=== PATIENT | female | born 1975 | race Caucasian/White ===

== ENCOUNTER 2016-12-08 11:09 | Inpatient (IN) | payer OTHER ==
[~2016-12-08] VITALS: Ht 152.4 cm; Wt 108.9 kg
--- NOTE | 2016-12-08 11:17 | NUR ---
Patient to ER bed 8 to gown for evaluation. Side rails up. Report given to Brandan MERCADO.
--- NOTE | 2016-12-08 11:18 | NUR ---
Pt presents to ED from PMD's after visit.Pt c/o fever,chills and fluid retention.Pt has anxiety noted,headache.Pt reports h/o htn.
[2016-12-08 11:20] VITALS: BP_SYST 170
--- NOTE | 2016-12-08 11:20 | NUR ---
ER Dr. Nagel at bedside examining patient.
[2016-12-08] MEDS ORDERED: NACL 0.9% 1,000 ML IV SCH (11:22)
--- NOTE | 2016-12-08 11:30 | NUR ---
# 20 gauge angiocath placed to RAC. Use of asceptic technique. Opsite placed over site. Blood return noted. Blood for lab drawn from site. Flushed with 10 cc of normal saline. No evidence of infiltration noted. Patient tolerated well.
[2016-12-08 11:47] LABS: BILIRUBIN,URINE NEGATIVE (NEGATIVE); BLOOD, URINE 3+ (NEGATIVE); CLARITY/URINE CLEAR (CLEAR); COLOR,URINE YELLOW (YELLOW); GLUCOSE,URINE NEGATIVE (NEGATIVE); KETONES,URINE NEGATIVE (NEGATIVE); LEUKOCYTE ESTERASE ,URINE TRACE (NEGATIVE); NITRITE, URINE POSITIVE (NEGATIVE); PROTEIN URINE 1+ (NEGATIVE); UROBILINOGEN,URINE 0.2 (0.2-1.0)
[2016-12-08 11:48] LABS: BASOPHILS % (AUTO) 0.2 % (0.0-2.0); EOSINOPHILS % (AUTO) 0.1 % (0.0-4.0); HEMATOCRIT 39.9 % (36-48); HEMOGLOBIN 13.5 g/dL (12.0-16.0); LYMPHOCYTES % (AUTO) 5.8 % (20.5-51.5); MEAN CORPUSCULAR HEMOGLOBIN 30 pg (27-31); MEAN CORPUSCULAR HGB CONC 34 % (32-36); MEAN CORPUSCULAR VOLUME 88 fL (79.0-98.0); MONOCYTES # (AUTO) 0.8 K/uL (0.0-1.0); MONOCYTES % (AUTO) 4.7 % (1.7-9.3); NEUTROPHILS % (AUTO) 89.2 % (40.0-70.0); PLATELET COUNT (AUTO) 217 K/uL (130-430); RED BLOOD CELL COUNT(AUTO) 4.53 MIL/uL (4.2-6.2); RED CELL DISTRIBUTION WIDTH 12.6 % (9.0-15.0); WHITE BLOOD COUNT (AUTO) 16.8 K/uL (4.8-10.8)
[2016-12-08 11:57] LABS: BACTERIA,URINE FEW /HPF (None Seen); RBC,URINE 20-50 /HPF (0-3)
[2016-12-08 12:08] LABS: CALCIUM 8.6 mg/dL (8.4-11.0); CREATININE 0.9 mg/dL (0.55-1.30); POTASSIUM 3.5 mmol/L (3.5-5.1)
--- NOTE | 2016-12-08 12:12 | NUR ---
Fever and headache resolving.BP 148/84
[2016-12-08 12:13] LABS: ALBUMIN 3.3 g/dL (3.4-4.8); TOTAL BILIRUBIN 0.4 mg/dL (0.0-1.0); TOTAL PROTEIN, SERUM 8.3 g/dL (6.4-8.3)
[2016-12-08] MEDS ORDERED: LEVOFLOXACIN 500 MG TABLET PO ONE (12:30)
[2016-12-08] MEDS ORDERED: LISI10TA5 PO (12:38)
--- NOTE | 2016-12-08 13:10 | NUR ---
ADMISSION NOTE Received patient from ER via julian, received report from Kirill MERCADO. Patient admitted with diagnosis of . Patient oriented to hospital routine, call light, toileting and safety-patient verbalized understanding.
[2016-12-08 13:26] VITALS: BP_SYST 120
[2016-12-08] MEDS ORDERED: ACETAMINOPHEN 325 MG TABLET ONE (14:55)
--- NOTE | 2016-12-08 14:57 | NUR ---
Fever: Patient is chilling, Tbti=876.0, UM=051, Sat B8=207%. Call Dr. Mccarthy and he has ordered for Tylenol 650 mg PO Q 6 hr PRN for fever. Will continue monitor V/S, and symptom.
[2016-12-08] MEDS ORDERED: ONDANSETRON HCL 4 MG/2 ML VIAL IVP PRN (15:00)
[2016-12-08] MEDS ORDERED: ACETAMINOPHEN 325 MG TABLET PO PRN (15:00)
[2016-12-08] MEDS ORDERED: MORPHINE 2 MG/ML INJ. SYRINGE IVP PRN (15:00)
[2016-12-08] MEDS ORDERED: MORPHINE 4 MG/ML INJ. SYRINGE IVP PRN (15:00)
[2016-12-08] MEDS ORDERED: ACETAMINOPHEN 650 MG/20.3 ML UDC PO ONE (15:00)
[2016-12-08] MEDS: NACL 0.9% 1,000 ML IV SCH (16:24)
[2016-12-08] MEDS: PIPERACILLIN/TAZO 3.375/DEX-IS 50 ML IV SCH ×3 (16:25→23:50)
--- NOTE | 2016-12-08 16:30 | NUR ---
IVF: Start IVF< Normal Saline> @ 100 ml/hr, and start a first dose of Antibiotic as ordered.
[2016-12-08 16:48] VITALS: BP_SYST 118
--- NOTE | 2016-12-08 19:05 | NUR ---
CLOSING NOTE: PATIENT IS STABLE, NO SIGN OF DISTRESS, TOLERATES DIET WELL. AMBULATING WELL.
[2016-12-08 20:00] VITALS: BP_SYST 121
--- NOTE | 2016-12-08 20:03 | NUR ---
Rounds Received patient lying in bed resting, denies of any pain, no acute distress noted. IV site checked intact and patent, IV fluid infusing well. Encouraged patient to use call light.
[2016-12-08] MEDS: ACETAMINOPHEN 325 MG TABLET PO PRN (21:10)
--- NOTE | 2016-12-08 22:13 | NUR ---
PAGED: I PAGED PHY. MONDRAGON @ [phone] ENVIRONMENTAL CONSERVATION PROFESSOR AZRA I SPOKE WITH ANITRAMARYANN OQUENDO CALLED BACK @ [phone] NUMBER I CALLED [phone]
--- NOTE | 2016-12-08 22:23 | NUR ---
C/o heartburn Patient c/o heartburn, informed Dr Mccarthy, order received to give Prilosec 20mg p.o daily.
[2016-12-08] MEDS ORDERED: OMEPRAZOLE 20 MG CAPSULE.DR (PriLOSEC) PO ONE (22:30)
[2016-12-08] MEDS: OMEPRAZOLE 20 MG CAPSULE.DR (PriLOSEC) PO SCH (22:42)
[2016-12-09] VITALS: BP_SYST 110
--- NOTE | 2016-12-09 00:42 | NUR ---
Rounds Patient resting and watching tv at this time. Prilosec given earlier with effective result noted. Temp 99.1. call light within reach.
--- NOTE | 2016-12-09 02:46 | NUR ---
Rounds Patient resting quietly, no s/s of any pain, no acute distress noted. call light within reach.
[2016-12-09] MEDS: NACL 0.9% 1,000 ML IV SCH ×2 (04:39→11:27)
[2016-12-09 04:45] VITALS: BP_SYST 124
[2016-12-09] MEDS: ACETAMINOPHEN 325 MG TABLET PO PRN (04:57)
--- NOTE | 2016-12-09 04:59 | NUR ---
C/O headache and Temp 101.0 Patient c/o headache and Temp 101.0, Tylenol 650mg p.o given and cooling measure provided. Coffee and x2 cracker given to patient per patient request. will monitor. call light within reach.
[2016-12-09] MEDS: PIPERACILLIN/TAZO 3.375/DEX-IS 50 ML IV SCH ×3 (05:49→17:49)
--- NOTE | 2016-12-09 06:25 | NUR ---
Closing notes Patient sitting on a chair resting and watching tv. Pain medication given earlier with effective result noted. Temp 99.0. call light within reach.
--- NOTE | 2016-12-09 07:36 | NUR ---
AM Rounds: Received pt sitting up in chair. Denies pain. IV intact to RUE with no redness or swelling noted to site. Call light in reach. Continue to monitor.
[2016-12-09 08:05] VITALS: BP_SYST 112
[2016-12-09] MEDS: OMEPRAZOLE 20 MG CAPSULE.DR (PriLOSEC) PO SCH (08:58)
--- NOTE | 2016-12-09 09:11 | NUR ---
RN Rounds: AM meds given per MD order. Pt tolerates well at this time. IV intact and infusing well to RUE with no redness or swelling noted to site. Pt denies pain. Call light in reach. Continue to monitor.
--- NOTE | 2016-12-09 11:34 | NUR ---
Rounds: Pt sitting up in chair. No acute signs of distress noted at this time. IV intact to RUE infusing IV fluids well at this time. Pt remains afebrile. Call light in reach. Pt denies pain. Continue to monitor.
--- NOTE | 2016-12-09 11:53 | NUR ---
reason for consult: sepsis was consult called: verbally spoke with dr in person person who was called: verbally spoke with dr in person consulting doctor: Dr. Cabral
[2016-12-09 12:44] VITALS: BP_SYST 129
--- NOTE | 2016-12-09 13:27 | NUR ---
Rounds: Pt sitting semi-fowlers in bed. No acute signs of distress noted. Pt c/o feeling hot, she remains afebrile at 97.0 F. Cooling measures implemented. Call light in reach. No other needs noted at this time. Continue to monitor.
--- NOTE | 2016-12-09 15:40 | NUR ---
Rounds: Pt sitting up in chair. Pt denies pain. No acute signs of distress noted. IV intact to RUE and infusing fluids well. Call light in reach. Continue to monitor pt closely.
--- NOTE | 2016-12-09 15:40 | NUR ---
Rounds: Pt sitting semi-fowlers in bed. No acute signs of distress noted at this time. IV intact to RUE with no redness or swelling noted to site. GT clamped to abdomen. Call light in reach. Aspiration and contact precautions in place. Continue to monitor. Addendum: 12/09/16 at 1615 by Toshia Hinson RN Wrong patient--please disregard this note
[2016-12-09 17:05] VITALS: BP_SYST 126
--- NOTE | 2016-12-09 17:25 | NUR ---
Rounds: Pt sitting semi-fowlers in bed. No acute signs of distress noted. Pt eating dinner at this time. Call light in reach. Continue to monitor.
--- NOTE | 2016-12-09 19:05 | NUR ---
Closing Note: Pt sitting up in bed and watching TV. No acute signs of distress noted. Call light in reach. Endorse plan of care to NOC RN.
[2016-12-09 20:00] VITALS: BP_SYST 122
[2016-12-09] MEDS: LACTOBACILLUS RHAMNOSUS GG 1 CAP CAPSULE PO SCH (20:27)
[2016-12-10] VITALS: BP_SYST 125
--- NOTE | 2016-12-10 | NUR ---
PATIENT RESTING: Patient resting quietly. No acute distress noted. Vital signs within normal range.
[2016-12-10] MEDS: NACL 0.9% 1,000 ML IV SCH ×3 (01:48→11:23)
[2016-12-10] MEDS: PIPERACILLIN/TAZO 3.375/DEX-IS 50 ML IV SCH ×2 (01:48→05:22)
--- NOTE | 2016-12-10 02:15 | NUR ---
ROUNDS PATIENT ASLEEP, VITALS STABLE, WILL CONTINUE TO MONITOR.
[2016-12-10 04:00] VITALS: BP_SYST 123
--- NOTE | 2016-12-10 04:00 | NUR ---
PATIENT RESTING: Patient resting quietly. No acute distress noted. Vital signs within normal range.
--- NOTE | 2016-12-10 06:50 | NUR ---
CLOSING NOTES PATIENT AWAKE, VITALS STABLE, ALL NEEDS ATTENDED TO. CALL LIGHT PLACED WITHIN REACH.
--- NOTE | 2016-12-10 07:23 | NUR ---
OPENING NOTE: RECEIVED REPORT FROM CREDIT ADMINISTRATION SPECIALIST NURSE. PATIENT RESTING COMFORTABLY, NO COMPLAINTS OF PAIN AT THIS TIME. PATIENT HAS NO NOTABLE SIGNS OF DISTRESS. PATIENTS BED IS IN LOWEST POSITION, CALL LIGHT WITHIN REACH, AND BED RAILS ARE UP. WILL CONTINUE TO MONITOR FOR CHANGES IN STATUS.
[2016-12-10 08:33] VITALS: BP_SYST 141
--- NOTE | 2016-12-10 10:00 | NUR ---
1000 ROUNDS PATIENT RESTING COMFORTABLY, NO COMPLAINTS OF PAIN AT THIS TIME. PATIENT HAS NO NOTABLE SIGNS OF DISTRESS AT THIS TIME. PATIENT BED IN LOWEST POSITION, SIDE RAILS UP, AND CALL LIGHT WITHIN REACH. WILL CONTINUE TO MONITOR FOR CHANGES IN STATUS.
[2016-12-10] MEDS: LACTOBACILLUS RHAMNOSUS GG 1 CAP CAPSULE PO SCH (10:01)
[2016-12-10] MEDS: OMEPRAZOLE 20 MG CAPSULE.DR (PriLOSEC) PO SCH (10:01)
[2016-12-10] MEDS ORDERED: LEVOFLOXACIN 250 MG TABLET PO ONE (12:00)
[2016-12-10 12:22] VITALS: BP_SYST 150
--- NOTE | 2016-12-10 12:35 | NUR ---
1200 ROUNDS PATIENT RESTING COMFORTABLY WITH FAMILY AT BEDSIDE, NO COMPLAINTS OF PAIN AT THIS TIME. PATIENT HAS NO NOTABLE SIGNS OF DISTRESS AT THIS TIME. PATIENT BED IN LOWEST POSITION, SIDE RAILS UP, AND CALL LIGHT WITHIN REACH. WILL CONTINUE TO MONITOR FOR CHANGES IN STATUS.
--- NOTE | 2016-12-10 13:44 | NUR ---
1400 ROUNDING PATIENT RESTING COMFORTABLY. PATIENT CURRENTLY NPO AWAITING AN EGD BY DR. MCGUIRE AT 1400. PATIENT BED IN LOWEST POSITION, CALL LIGHT WITHIN REACH, AND BED ALARM IS ON. WILL CONTINUE TO MONITOR FOR CHANGES IN STATUS. Addendum: 12/10/16 at 1429 by Kym Mcginnis RN WRONG PATIENT
[2016-12-10 14:22] VITALS: BP_SYST 139
--- NOTE | 2016-12-10 14:29 | NUR ---
DISCHARGE PENDING PATIENT AWAITING DISCHARGE HOME PER DR. OQUENDO.
--- NOTE | 2016-12-10 16:03 | NUR ---
DISCHARGE PATIENT GIVEN TRANSITIONAL CARE/DISCHARGE INSTRUCTIONS, REVIEWED AND EDUCATED PATIENT ON INFORMATION GIVEN. DISCUSSED FOLLOW UP CARE INSTRUCTIONS, AND PRESCRIPTION WAS GIVEN TO PATIENT. PATIENT VERBALIZES UNDERSTANDING OF INSTRUCTIONS. PATIENT BELONGINGS WERE CHECKED. PATIENT IS LEAVING WITH ALL BELONGINGS. PATIENT ALERT AND ORIENTED X 4. NO COMPLAINTS OF PAIN, AND NO NOTABLE SIGNS OF DISTRESS PRESENT.
[2016-12-10 16:23] VITALS: BP_SYST 137
[2016-12-11] MEDS ORDERED: LEVOFLOXACIN 250 MG TABLET PO SCH (10:00)
== END 2016-12-10 16:23 | disposition home or self-care (01) | DRG 872 ==
LOC: SED 11:09 → SMU 12:47
PROVIDERS: ADMIT Internal Medicine Hospice and Palliative Medicine; ATTEND Internal Medicine Hospice and Palliative Medicine
DX: A41.9 Sepsis, unspecified organism (principal); N10 Acute pyelonephritis; I10 Essential (primary) hypertension; B96.20 Unspecified Escherichia coli [E. coli] as the cause of diseases classified elsewhere
CPT/HCPCS: 36415; 71010; 80053; 81000-TC; 83605; 85025; 87040-TC; 87086; 87186-TC; 96360; 99285; J2543; J7030

== ENCOUNTER 2016-12-17 09:28 | Outpatient (CLI) | payer OTHER ==
[~2016-12-17 09:28] MED LIST: LISI10TA5 PO
[2016-12-17 10:09] LABS: BASOPHILS % (AUTO) 0.5 % (0.0-2.0); EOSINOPHILS # (AUTO) 0.1 K/uL (0.0-0.4); EOSINOPHILS % (AUTO) 1.1 % (0.0-4.0); HEMATOCRIT 42.8 % (36-48); HEMOGLOBIN 14.1 g/dL (12.0-16.0); LYMPHOCYTES # (AUTO) 1.9 K/uL (1.0-5.5); LYMPHOCYTES % (AUTO) 29.1 % (20.5-51.5); MEAN CORPUSCULAR HEMOGLOBIN 29 pg (27-31); MEAN CORPUSCULAR HGB CONC 33 % (32-36); MEAN CORPUSCULAR VOLUME 88 fL (79.0-98.0); MONOCYTES # (AUTO) 0.3 K/uL (0.0-1.0); MONOCYTES % (AUTO) 5.2 % (1.7-9.3); NEUTROPHILS # (AUTO) 4.2 K/uL (1.8-7.7); NEUTROPHILS % (AUTO) 64.1 % (40.0-70.0); PLATELET COUNT (AUTO) 411 K/uL (130-430); RED BLOOD CELL COUNT(AUTO) 4.87 MIL/uL (4.2-6.2); RED CELL DISTRIBUTION WIDTH 12.6 % (9.0-15.0); WHITE BLOOD COUNT (AUTO) 6.5 K/uL (4.8-10.8)
[2016-12-17 10:23] LABS: BILIRUBIN,URINE NEGATIVE (NEGATIVE); CLARITY/URINE CLEAR (CLEAR); COLOR,URINE YELLOW (YELLOW); GLUCOSE,URINE NEGATIVE (NEGATIVE); KETONES,URINE NEGATIVE (NEGATIVE); LEUKOCYTE ESTERASE ,URINE NEGATIVE (NEGATIVE); NITRITE, URINE NEGATIVE (NEGATIVE); PROTEIN URINE NEGATIVE (NEGATIVE); UROBILINOGEN,URINE 0.2 (0.2-1.0)
[2016-12-17 10:30] LABS: BLOOD, URINE TRACE (NEGATIVE)
[2016-12-17 10:42] LABS: CHOLESTEROL 215 mg/dL (<200); HDL CHOLESTEROL 42 mg/dL (>55); LDL CHOLESTEROL 139 mg/dL (<100); TRIGLYCERIDES 146 mg/dL (30-150)
[2016-12-17 11:14] LABS: ALBUMIN 3.7 g/dL (3.4-4.8); BILIRUBIN,DIRECT 0.1 mg/dL (0.0-0.3); CALCIUM 9.1 mg/dL (8.4-11.0); CREATININE 0.94 mg/dL (0.55-1.30); POTASSIUM 4.3 mmol/L (3.5-5.1); THYROID STIMULATING HORMONE 1.35 uIu/mL (0.34-4.82); TOTAL BILIRUBIN 0.2 mg/dL (0.0-1.0); TOTAL PROTEIN, SERUM 8.2 g/dL (6.4-8.3); URIC ACID 5.6 mg/dL (2.4-7.0)
[2016-12-17 11:18] LABS: RBC,URINE 0-3 /HPF (0-3); WBC,URINE 0-3 /HPF (0-3)
[2016-12-17 11:19] LABS: BACTERIA,URINE RARE /HPF (None Seen)
[2016-12-19 17:01] LABS: HEMOGLOBIN A1C 5.7 % (4.8-5.6)
== END 2016-12-17 19:43 | disposition home or self-care (01) ==
LOC: SLB 09:28
PROVIDERS: ATTEND Family Medicine
DX: Z00.00 Encounter for general adult medical examination without abnormal findings (principal)
CPT/HCPCS: 36415; 80053; 80061; 81000-TC; 82248-TC; 82306; 82607; 83036; 83550-TC; 84443-TC; 84550-TC; 85025; 87086

== ENCOUNTER 2016-12-26 08:13 | Outpatient (CLI) | payer OTHER | END 2016-12-26 19:47 | disposition home or self-care (01) | LOC: SMA 08:13 | PROVIDERS: ATTEND Family Medicine | DX: Z12.31 Encounter for screening mammogram for malignant neoplasm of breast (principal) | CPT/HCPCS: 77067; G0202 ==

== ENCOUNTER 2017-10-28 08:32 | Outpatient (CLI) | payer OTHER ==
[2017-10-28 09:31] LABS: BILIRUBIN,URINE NEGATIVE (NEGATIVE); BLOOD, URINE 3+ (NEGATIVE); COLOR,URINE YELLOW (YELLOW); GLUCOSE,URINE NEGATIVE (NEGATIVE); KETONES,URINE NEGATIVE (NEGATIVE); LEUKOCYTE ESTERASE ,URINE 1+ (NEGATIVE); NITRITE, URINE NEGATIVE (NEGATIVE); PROTEIN URINE TRACE (NEGATIVE); UROBILINOGEN,URINE 0.2 (0.2-1.0)
[2017-10-28 09:33] LABS: CLARITY/URINE SLIGHTLY HAZY (CLEAR)
[2017-10-28 09:40] LABS: BACTERIA,URINE MANY /HPF (None Seen); MUCUS,URINE 1+ /LPF (None Seen)
[2017-10-28 09:45] LABS: BASOPHILS % (AUTO) 0.4 % (0.0-2.0); EOSINOPHILS # (AUTO) 0.1 K/uL (0.0-0.4); EOSINOPHILS % (AUTO) 1.2 % (0.0-4.0); HEMATOCRIT 40.6 % (36-48); HEMOGLOBIN 13.2 g/dL (12.0-16.0); LYMPHOCYTES # (AUTO) 1.7 K/uL (1.0-5.5); LYMPHOCYTES % (AUTO) 18.1 % (20.5-51.5); MEAN CORPUSCULAR HEMOGLOBIN 29 pg (27-31); MEAN CORPUSCULAR HGB CONC 32 % (32-36); MEAN CORPUSCULAR VOLUME 90 fL (79.0-98.0); MONOCYTES # (AUTO) 0.6 K/uL (0.0-1.0); MONOCYTES % (AUTO) 6.1 % (1.7-9.3); NEUTROPHILS # (AUTO) 7.2 K/uL (1.8-7.7); NEUTROPHILS % (AUTO) 74.2 % (40.0-70.0); PLATELET COUNT (AUTO) 251 K/uL (130-430); RED BLOOD CELL COUNT(AUTO) 4.53 MIL/uL (4.2-6.2); WHITE BLOOD COUNT (AUTO) 9.6 K/uL (4.8-10.8)
[2017-10-28 10:15] LABS: ALBUMIN 3.2 g/dL (3.4-4.8); BILIRUBIN,DIRECT 0.1 mg/dL (0.0-0.3); CALCIUM 8.9 mg/dL (8.4-11.0); CREATININE 0.65 mg/dL (0.55-1.30); POTASSIUM 3.9 mmol/L (3.5-5.1); THYROID STIMULATING HORMONE 1.82 uIu/mL (0.34-4.82); TOTAL BILIRUBIN 0.5 mg/dL (0.0-1.0); URIC ACID 4.2 mg/dL (2.4-7.0)
[2017-10-29 07:48] LABS: HEMOGLOBIN A1C 5.4 % (4.8-5.6)
== END 2017-10-28 20:58 | disposition home or self-care (01) ==
LOC: SLB 08:32
PROVIDERS: ATTEND Family Medicine
DX: Z00.01 Encounter for general adult medical examination with abnormal findings (principal); R79.89 Other specified abnormal findings of blood chemistry
CPT/HCPCS: 36415; 80053; 80061; 80076; 81000-TC; 82607; 83036; 83550-TC; 84443-TC; 84550-TC; 85025; 87086

== ENCOUNTER 2018-12-28 11:45 | Emergency (ER) | payer OTHER ==
[~2018-12-28] VITALS: Ht 152.4 cm; Wt 111.1 kg
[2018-12-28 12:27] VITALS: BP_SYST 150
--- NOTE | 2018-12-28 12:31 | NUR ---
Patient to ER [facility] to [facility] for evaluation. Side rails up. Report given to Do MERCADO.
--- NOTE | 2018-12-28 12:31 | NUR ---
ER Dr. Alaniz at bedside examining patient.
--- NOTE | 2018-12-28 12:33 | NUR ---
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 patient stated she was cleaning yesterday, lifted a box and felt a burning/stinging feeling on her hand. patients hand began to swell there after. patient denies pain. no other complaint or injury at this time.
--- NOTE | 2018-12-28 12:36 | NUR ---
Patient given written and verbal discharge instructions and verbalizes understanding. ER MD discussed with patient the results and treatment provided. Patient in stable condition. ID arm band removed. Rx of Keflex, Motrin given. Patient educated on pain management and to follow up with PMD. Pain Scale 0/10. Opportunity for questions provided and answered. Medication side effect fact sheet provided.
[2018-12-28 12:37] VITALS: BP_SYST 140
== END 2018-12-28 12:36 | disposition home or self-care (01) ==
LOC: SED 11:45
DX: S60.562A Insect bite (nonvenomous) of left hand, initial encounter (principal); L03.114 Cellulitis of left upper limb; W57.XXXA Bitten or stung by nonvenomous insect and other nonvenomous arthropods, initial encounter; Y93.89 Activity, other specified; Y92.89 Other specified places as the place of occurrence of the external cause; Y99.8 Other external cause status
CPT/HCPCS: 99283

== ENCOUNTER 2019-07-11 08:20 | Outpatient (CLI) | payer OTHER ==
[2019-07-11 08:49] LABS: BASOPHILS % (AUTO) 0.5 % (0.0-2.0); BILIRUBIN,URINE NEGATIVE (NEGATIVE); BLOOD, URINE 2+ (NEGATIVE); CLARITY/URINE CLEAR (CLEAR); COLOR,URINE YELLOW (YELLOW); EOSINOPHILS # (AUTO) 0.5 K/uL (0.0-0.4); EOSINOPHILS % (AUTO) 6.2 % (0.0-4.0); GLUCOSE,URINE NEGATIVE (NEGATIVE); HEMATOCRIT 41.7 % (36-48); HEMOGLOBIN 14.2 g/dL (12.0-16.0); KETONES,URINE NEGATIVE (NEGATIVE); LEUKOCYTE ESTERASE ,URINE NEGATIVE (NEGATIVE); LYMPHOCYTES # (AUTO) 1.7 K/uL (1.0-5.5); LYMPHOCYTES % (AUTO) 22.6 % (20.5-51.5); MEAN CORPUSCULAR HEMOGLOBIN 31 pg (27-31); MEAN CORPUSCULAR HGB CONC 34 % (32-36); MEAN CORPUSCULAR VOLUME 92 fL (79.0-98.0); MONOCYTES # (AUTO) 0.4 K/uL (0.0-1.0); MONOCYTES % (AUTO) 5.7 % (1.7-9.3); NITRITE, URINE NEGATIVE (NEGATIVE); PLATELET COUNT (AUTO) 240 K/uL (130-430); PROTEIN URINE TRACE (NEGATIVE); RED BLOOD CELL COUNT(AUTO) 4.53 MIL/uL (4.2-6.2); RED CELL DISTRIBUTION WIDTH 12.9 % (9.0-15.0); WHITE BLOOD COUNT (AUTO) 7.6 K/uL (4.8-10.8)
[2019-07-11 08:50] LABS: UROBILINOGEN,URINE 0.2 (0.2-1.0)
[2019-07-11 08:55] LABS: BACTERIA,URINE FEW /HPF (None Seen); WBC,URINE 0-3 /HPF (0-3)
[2019-07-11 09:23] LABS: BILIRUBIN,DIRECT 0.1 mg/dL (0.0-0.3); CALCIUM 8.9 mg/dL (8.4-11.0); CREATININE 0.81 mg/dL (0.55-1.30); POTASSIUM 4.1 mmol/L (3.5-5.1); TOTAL BILIRUBIN 0.3 mg/dL (0.0-1.0)
[2019-07-11 09:24] LABS: ALBUMIN 3.8 g/dL (3.4-4.8); FREE T4 (FREE THYROXINE) 1.1 ng/dl (0.8-1.5); THYROID STIMULATING HORMONE 3.21 uIu/mL (0.36-3.74); URIC ACID 5.4 mg/dL (2.4-7.0)
[2019-07-12 04:19] LABS: HEMOGLOBIN A1C 5.5 % (4.8-5.6)
[2019-07-12 13:55] LABS: CREATININE, URINE 153.3 mg/dL; MICROALBUMIN URINE RANDOM 125.4 ug/ml (NOT ESTABLISHED); MICROALBUMIN/CREAT RATIO, UR 81.8 MG/G CRE (0.0-30.0)
== END 2019-07-11 20:23 | disposition home or self-care (01) ==
LOC: SLB 08:20
PROVIDERS: ATTEND Family Medicine
DX: Z01.419 Encounter for gynecological examination (general) (routine) without abnormal findings (principal); E66.09 Other obesity due to excess calories
CPT/HCPCS: 36415; 80053; 80061; 80076; 81000-TC; 82043; 82248-TC; 82306; 82570; 82607; 82746; 83036; 83540-TC; 84439; 84443-TC; 84479; 84550-TC; 85025

== ENCOUNTER 2019-10-11 15:37 | Outpatient (CLI) | payer OTHER | END 2019-10-11 21:11 | disposition home or self-care (01) | LOC: SMA 15:37 | PROVIDERS: ATTEND Family Medicine | DX: Z12.31 Encounter for screening mammogram for malignant neoplasm of breast (principal); N64.89 Other specified disorders of breast | CPT/HCPCS: 77067 ==